=== PATIENT | male | born 1995 | race Two or more races ===

== ENCOUNTER 2016-05-22 13:53 | Emergency (ER) | payer SELFPAY ==
[~2016-05-22] VITALS: Ht 182.9 cm; Wt 99.8 kg
[2016-05-22 14:55] VITALS: BP 110/67
[2016-05-22] MEDS ORDERED: IBUPROFEN 800 MG TAB PO ONE (15:30)
== END 2016-05-22 16:00 | disposition home or self-care (01) ==
LOC: ER 13:54
DX: S62.347A Nondisplaced fracture of base of fifth metacarpal bone, left hand, initial encounter for closed fracture (principal); W22.8XXA Striking against or struck by other objects, initial encounter; Y93.89 Activity, other specified; Y99.8 Other external cause status; Y92.89 Other specified places as the place of occurrence of the external cause
CPT/HCPCS: 29125; 73130

== ENCOUNTER 2023-09-18 11:43 | Emergency (ER) | payer MEDICAID ==
[~2023-09-18] VITALS: Ht 182.9 cm; Wt 120.6 kg
[2023-09-18 13:10] VITALS: BP 130/88; PULSE 92; RESP 18; TEMP 98.6; O2SAT 98
[2023-09-18] MEDS ORDERED: IBUP-1456 PO (14:05)
== END 2023-09-18 14:38 | disposition home or self-care (01) ==
LOC: ER 11:43
DX: S80.12XA Contusion of left lower leg, initial encounter (principal); W18.09XA Striking against other object with subsequent fall, initial encounter; Y93.89 Activity, other specified; Y92.89 Other specified places as the place of occurrence of the external cause; Y99.8 Other external cause status
CPT/HCPCS: 73590; 93971